=== PATIENT | male | born 1940 | race African-American/Black ===

== ENCOUNTER 2017-10-11 11:16 | Emergency (ER) | payer OTHER ==
[~2017-10-11] VITALS: Ht 180.3 cm; Wt 84.4 kg
--- NOTE | ~2017-10-11 | EKG ---
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 : 1940 Requested By: Mary Carmen Blue Order Number: [id number] MD: Larry Contreras Measurements Intervals [place] Rate: 56 P: 69 AL: 160 QRS: -53 QRSD: 172 T: -85 QT: 531 QTc: 513 Interpretive Statements Sinus rhythm Right bundle branch block Abnrm T, consider ischemia, anterolateral lds Baseline wander in lead(s) V4 Compared to ECG 05/27/2009 07:45:40 Right bundle-branch block now present Possible ischemia now present Atrial abnormality no longer present Left-axis deviation no longer present T-wave abnormality no longer present Intraventricular conduction delay no longer present Electronically Signed On 10-11-2017 15:46:54 CDT by Larry Contreras [email or web address] <ELECTRONICALLY SIGNED> By: Larry Contreras MD 10/11/17 1546 1145 1145 Larry Contreras MD /EPI
[~2017-10-11 11:16] MED LIST: BP; FUROSEMIDE 80 M80 M1 PO
[2017-10-11 11:48] LABS: ABSOLUTE NEUTROPHILS 3.5 thou/uL (1.4-8.2); BASOPHILS 0.3 % (0.0-2.0); EOSINOPHILS 1.9 % (0.0-3.0); HEMATOCRIT 40.1 % (42.0-52.0); HEMOGLOBIN 13.4 gm/dL (14.0-18.0); MCH 29.2 pg (26.0-34.0); MCHC 33.4 g/dL (28.0-37.0); MCV 87.5 fL (80.0-100.0); MONOCYTES 7.7 % (1.0-8.0); PLATELET COUNT 202 thou/uL (150-400); POLYS 77.1 % (36.0-66.0); RBC 4.59 mil/uL (4.50-6.00); RDW 14.3 % (10.5-14.5); WBC 4.6 thou/uL (4.0-11.0)
[2017-10-11 12:02] LABS: ANION GAP 6 mmol/L (7-16); BUN 14 mg/dL (7-18); CALCIUM 9.5 mg/dL (8.5-10.1); CHLORIDE 105 mmol/L (98-107); CO2 29 mmol/L (21-32); CREATININE 1.1 mg/dL (0.7-1.3); GLUCOSE 246 mg/dL (74-106); SODIUM 140 mmol/L (136-145)
[2017-10-11 12:07] LABS: TROPONIN-I < 0.04 ng/mL (<0.06)
[2017-10-11 12:59] VITALS: BP 109/62
== END 2017-10-11 13:03 | disposition home or self-care (01) ==
LOC: ER 11:16
PROVIDERS: Emergency Medicine
DX: R55 Syncope and collapse (principal); I10 Essential (primary) hypertension; E78.5 Hyperlipidemia, unspecified; E11.9 Type 2 diabetes mellitus without complications; Z85.07 Personal history of malignant neoplasm of pancreas

== ENCOUNTER 2017-11-25 11:14 | Inpatient (IN) | payer OTHER ==
[2017-11-25] VITALS (12 sets, daily range): BP systolic 134–168; BP diastolic 74–88
[~2017-11-25] VITALS: Ht 180.3 cm; Wt 77.2 kg
--- NOTE | ~2017-11-25 | H ---
[facility] [place] [address] HISTORY AND PHYSICAL Name: YOAV DE LA TORRE Room #: 360-P [facility] IN M.R.#: [id number] Admission: 11/25/17 Attend Phys: Sean Harris MD Discharge: Date of : 40 Report #: [id number] THIS REPORT FOR: //name// CC: Robert Harris DATE OF SERVICE: 11/25/2017 CHIEF COMPLAINT: Altered mental status. HISTORY OF PRESENT ILLNESS: The patient is a 77-year-old male with history of hypertension; history of DVT in the past, on Xarelto; history of PE; diabetes; and metastatic pancreatic cancer, who was brought in by EMS after being found unresponsive in his home. He normally takes insulin around 20-22 units at bedtime. He apparently took 21 units of Lantus last night. The patient has had poor p.o. intake. He says he has had poor p.o. intake since 04/2017. He has lost around 90 pounds since 2017. The patient denies any abdominal pain. He denies any nausea. No vomiting. When EMS arrived, his blood sugar was very low, less than 20. The patient was given glucose and was brought into the Emergency Room. He was also found to be bradycardic with a heart rate of 35 per minute. The patient was given a dose of atropine in the Emergency Room. His blood sugars persistently remained low and was started on a D5 drip. The patient at present is awake, alert and denies any complaint other than generalized weakness. PAST MEDICAL HISTORY: Significant for hypertension, diabetes, had a cardiac catheterization in 2009, history of metastatic pancreatic cancer, history of pulmonary embolism, dyslipidemia and diabetes. ALLERGIES: No known drug allergy. HOME MEDICATIONS: Reviewed. SOCIAL HISTORY: No smoking, alcohol abuse, or illicit drug abuse. FAMILY HISTORY: Noncontributory for this patient. REVIEW OF SYSTEMS: CONSTITUTIONAL: No fever or chills. He has lost around 90 pounds since April. EYES: No change in vision. THROAT: Denies any sore throat. CARDIOVASCULAR: No chest pain, dizziness, palpitation. RESPIRATORY: No cough or expectoration. [facility] [address] [place] [address] HISTORY AND PHYSICAL Name: YOAV DE LA TORRE Room #: 360-P [facility] IN .R.#: [id number] Admission: 11/25/17 Attend Phys: Sean Harris MD Discharge: Date of : 40 Report #: [id number] GASTROINTESTINAL: No nausea, vomiting, abdominal pain. GENITOURINARY: No dysuria, hematuria. NEUROLOGIC: No focal numbness or weakness of the extremities. PSYCHIATRIC: No anxiety or depression. The 12-point review of system is negative other than the positive and the negative dictated in the history of present illness and the review of system. PHYSICAL EXAMINATION: VITAL SIGNS: Blood pressure is 120/70, heart rate of 40 per minute, afebrile, awake and alert, not in acute respiratory distress. EYES: Pupils equal, reactive to light. THROAT: He has a dry oral mucosa. NECK: Supple, no JVD, no bruit, no lymphadenopathy. CARDIOVASCULAR SYSTEM: S1, S2; negative S3, no murmur. CHEST: Bilateral air entry present. Clear on auscultation. ABDOMEN: Soft, bowel sounds present, no mass, no organomegaly, no tenderness. EXTREMITIES: Periphery has 1-2+ pedal edema bilaterally. LABORATORY DATA: Labs reviewed. Chest x-ray showed no acute process. There is scoliosis and bilateral shoulder degenerative changes. CT of the abdomen and pelvis showed bilateral lower lobe pulmonary emboli. Pancreatic head mass, multiple liver metastatic disease, there is also cholelithiasis and a bile duct stent. There is mild circumferential mural thickening of the descending and sigmoid colon without evidence of pericolonic inflammation. There is also sclerotic bony metastatic lesion at the L5. White count is 4.3, hemoglobin is 11.3, platelet is 143. Chemistry showed potassium of 3.4. Sodium is 146, BUN and creatinine 13 and 1.0. AST and ALT are within normal limit. Alkaline phosphatase is 92. His BNP is 3158. ASSESSMENT AND PLAN: 1. Hypoglycemia, most likely secondary to his poor p.o. intake and extreme weight loss over the last several months. He might need to discontinue Levemir at home. We will continue with D5 normal saline. We will continue to monitor with Accu-Cheks closely. 2. Bradycardia. The patient will be monitored on telemetry. Could be related to hypoglycemia. We will consult Cardiology, we will also check on a TSH level. 3. Metastatic pancreatic cancer. The patient apparently has never been on any treatment modality for his pancreatic cancer. We will consult Dr. Bowie. The patient might benefit with palliative care. 4. Bilateral pulmonary emboli. The patient has developed pulmonary embolisms in spite of being on Xarelto. We will switch him to Lovenox, we will also get input from Dr. Bowie. 5. Deep venous thrombosis prophylaxis, he is on Lovenox. 6. Severe debility and protein energy malnutrition. [facility] [address] [place] [address] HISTORY AND PHYSICAL Name: YOAV DE LA TORRE Room #: 360-P ADM IN M.R.#: [id number] Admission: 11/25/17 Attend Phys: Sean Harris MD Discharge: Date of : 40 Report #: [id number] Treatment plan has been explained to the patient in detail. The patient presently wants to be a full code. His family is planning to talk to him further about the code status. <ELECTRONICALLY SIGNED> By: Sean Harris MD 11/26/17 1910 [id number] 1521 Sean Harris MD /nt
--- NOTE | ~2017-11-25 | 2DMMODE ---
[facility] [address] [place] [address] 2 D/M-MODE ECHOCARDIOGRAM Name: YOAV DE LA TORRE Room #: 245-P ADM IN M.R.#: [id number] Admission: 11/25/17 Attend Phys: Gary Enriquez Discharge: Date of : 40 Date of Service: 11/26/17 0908 Report #: [id number] THIS REPORT FOR: //name// APPROVED REPORT Study performed: 11/26/2017 08:04:57 EXAM: Comprehensive 2D, Doppler, and color-flow Echocardiogram Patient Location: ICU Room #: [facility] Status: routine BSA: 1.97 HR: 49 bpm BP: 126/72 mmHg Rhythm: NSR,PVC's,bradycardia Other Information Study Quality: Good Indications Bradycardia. Hx: Cardiomyopathy, PE, HTN, HLP, DM 2D Dimensions RVDd: 41.35 mm LVEF(%): 21.64 (>50%) IVSd: 11.41 (7-11mm) LVOT Diam: 24.01 (18-24mm) LVDd: 60.24 mm PWd: 10.07 (7-11mm) Ascending Ao: 35.31 (22-36mm) LVDs: 54.17 (25-40mm) Aortic Root: 37.31 mm Soto's LVEF: 21.64 % Volumes Left Atrial Volume (Systole) Single Plane 4CH: 54.41 mL Single Plane 2CH: 60.78 mL LA ESV Index: 33.00 mL/m2 Aortic Valve AoV Peak Rocky.: 2.24 m/s AO Peak Gr.: 20.01 mmHg LVOT Max P.10 mmHg AO Mean Gr.: 10.88 mmHg AO V2 Mean: 1.58 m/s LVOT Max V: 0.88 m/s AO V2 VTI: 49.59 cm CARL Vmax: 1.78 cm2 Mitral Valve [facility] [place] [address] 2 D/M-MODE ECHOCARDIOGRAM Name: YOAV DE LA TORRE Room #: 245-P [facility] IN M.R.#: [id number] Admission: 11/25/17 Attend Phys: Gary Enriquez Discharge: Date of : 40 Date of Service: 11/26/17 0908 Report #: [id number] E/A Ratio: 0.6 MV Decel. Time: 265.09 ms MV E Max Rocky.: 0.43 m/s MV A Rocky.: 0.72 m/s MV PHT: 76.88 ms IVRT: 179.93 ms Pulmonary Valve PV Peak Rocky.: 1.06 m/s PV Peak Gr.: 4.47 mmHg Pulmonary Vein P Vein S: 0.51 m/s P Vein D: 0.41 m/s P Vein S/D Ratio: 1.24 Tricuspid Valve TR Peak Rocky.: 2.35 m/s RAP Estimate: 5.00 mmHg TR Peak Gr.: 22.00 mmHg PA Pressure: 27.00 mmHg Left Ventricle Left ventricle is mildly dilated. There is global hypokinesis of the left ventricle. There is normal left ventricular wall thickness. Left ventricular systolic function is severely decreased. LVEF is 30-35%. Mild diastolic dysfunction is present (impaired relaxation pattern). Right Ventricle The right ventricle is normal size. The right ventricular systolic function is normal. Atria Left atrium is at the upper limits of normal. Right atrium is at the upper limits of normal. Aortic Valve Aortic valve leaflets are moderately thickened and calcified. Trace aortic regurgitation. Mild aortic stenosis. Calculated aortic valve area is 1.8 cm2 with maximum pressure gradient of 20 mmHg and mean pressure gradient of 11 mmHg. Mitral Valve The mitral valve is normal in structure. Mild mitral regurgitation. Tricuspid Valve [facility] [address] [place] [address] 2 D/M-MODE ECHOCARDIOGRAM Name: YOAV DE LA TORRE Room #: 245-P [facility] IN M.R.#: [id number] Admission: 11/25/17 Attend Phys: Gary Enriquez Discharge: Date of : 40 Date of Service: 11/26/17 0908 Report #: [id number] The tricuspid valve is normal in structure. Mild tricuspid regurgitation. Estimated PAP is 30mmHg. Pulmonic Valve The pulmonary valve is normal in structure. Trace pulmonic regurgitation. Great Vessels The aortic root is normal in size. The ascending aorta is normal in size. IVC is normal in size and collapses >50% with inspiration. Pericardium Small pericardial effusion <Conclusion> LVEF is 30-35%. Global hypokinesis of the left ventricle. Mild diastolic dysfunction is present (impaired relaxation pattern). Aortic valve leaflets are moderately thickened and calcified. Mild aortic stenosis. Calculated aortic valve area 1.8 cm2 (maximum pressure gradient of 20 mmHg, mean pressure gradient of 11 mmHg). The mitral valve is normal in structure. Mild mitral regurgitation. Mild tricuspid regurgitation. Estimated pulmonary artery pressure 30mmHg. Small pericardial effusion <ELECTRONICALLY SIGNED> By: Faizan Benz MD, FACC 11/26/17907 7 7 Faizan Benz MD, FACC /INF
--- NOTE | ~2017-11-25 | EKG ---
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1940 Requested By: Eris Lr Order Number: [id number] MD: Larry Contreras Measurements Intervals [place] Rate: 46 P: -31 ME: 170 QRS: -52 QRSD: 172 T: -54 QT: 601 QTc: 526 Interpretive Statements Sinus bradycardia RBBB and LAFB Abnormal T, consider ischemia, inferior leads Compared to ECG 10/11/2017 11:45:19 Left anterior fascicular block now present T-wave abnormality now present Sinus rhythm no longer present Possible ischemia still present Electronically Signed On 11-25-2017 13:09:22 CDT by Larry Contreras [email or web address] <ELECTRONICALLY SIGNED> By: Larry Contreras MD 11/25/17 1309 1117 1117 Larry Contreras MD /EPI
--- NOTE | ~2017-11-25 | HC ---
[facility] [place] [address] [place] [place] [address] CONSULTATION Name: YOAV DE LA TORRE Room #: 245-P [facility] IN M.R.#: [id number] Admission: 11/25/17 Attend Phys: Sean Harris MD Discharge: Date of : 40 Report #: [id number] THIS REPORT FOR: //name// CC: Faizan Benz MD [facility] Robert Araujo Primary Care Physician Sean Harris MD REASON FOR CONSULTATION: Pulmonary embolus, DVT and pancreatic cancer. HISTORY OF PRESENT ILLNESS: The patient is a 77-year-old gentleman I first met in late 2006 early 2017 with probable pancreatic cancer, though the biopsies were suspicious, but not confirmed. The patient elected not to pursue additional investigation. He also had elected to pursue nontraditional therapy, which was not unreasonable with the presumed diagnosis of pancreatic cancer, though we had wished him to have a biopsy. Note that the fine-needle aspirate was read as markedly atypical cells favoring adenocarcinoma. Note that the patient also was found to have incidental pulmonary emboli on a CAT scan in August. At that time, he was initially begun on Lovenox, but after discussion, he disliked the shots, so he was begun on Xarelto. It sounds like, in talking to the patient, has been quite noncompliant with that recently. Recently, on a trip to [place] between 1 and 2 weeks ago, he was on his pills, but since he has been back 7-10 days ago, he has maybe taken the pill half the time. He now comes in with decreased mentation, was found to have a blood sugar of around 20 and also heart rate around 35. The patient describes feeling woozy and then sort of passing out, then waking up in the ambulance. Before that, he denied any fevers or chills. No nausea or vomiting. He had noticed that perhaps his legs have been a bit more swollen, left more than right. He had not really been any more short of breath than usual. No new change in bowel habits. No blood in his urine or stool. He has had ongoing weight loss; he has total now lost maybe between 70 and 90 pounds during the last 6 or 9 months. Note that during the first several months of our followup, he had not told his about his health condition. She then became aware and has been part of the discussion in the last several months. The patient this morning is seen in the ICU. He is alert and appears to be oriented and appears to be a reliable historian. PAST MEDICAL HISTORY: Past history is notable for the development of jaundice with a CAT scan done on 05/05/2017 at [facility] that shows a pancreatic head mass measuring 4 x 3.5 cm. There is also biliary duct dilatation. He had endoscopic ultrasound at with the finding of mass near the pancreas, borders poorly defined. There was also evidence suggesting invasion into the portal vein. Fine needle aspiration had atypical cells favoring adenocarcinoma. He had an ERCP with a sphincterotomy performed. There is also, on the ERCP, changes worrisome for abnormalities in the liver. A PET scan done in 08/2017 show progression of the known pancreatic mass as well as the liver lesion and development of the second liver lesion. Tumor markers have been over 17,000. [facility] [address] [place] [address] CONSULTATION Name: YOAV DE LA TORRE Room #: 245-P ADM IN M.R.#: [id number] Admission: 11/25/17 Attend Phys: Sean Harris MD Discharge: Date of : 40 Report #: [id number] The patient also has a history of hyperlipidemia; prostate cancer in 11/2016, treated with radiation therapy. Also, type 2 diabetes mellitus, osteoarthritis, GERD and elevated bilirubin. SOCIAL HISTORY: The patient is retired. FAMILY HISTORY: No one newly diagnosed with cancer. LABORATORY DATA: Lab here at the hospital is notable for BUN 9, creatinine 0.9. AST of 26, total bilirubin 0.4, alkaline phosphatase of 92 and ALT of 14. Albumin 2.4. NT-proBNP was 3158. White count of 4.5, hemoglobin 10.6, MCV 87.6 and platelets 144,000. Differential, slight increase of neutrophils. TSH was 1.087. IMAGING: This admit includes an ultrasound of both legs showing thrombus throughout most of the left femoral vein and the popliteal vein. The left common femoral vein is patent and compressible. Left calf veins were not visualized. There is thrombus in the right distal femoral vein and the right popliteal vein. Right calf veins appear to be patent. There is also CT abdomen and pelvis, with the description compared to 05/26/2009 of acute pulmonary emboli nonocclusive, involving both lower lobes; pancreatic head mass, probably about 4 cm with marked pancreatic ductal dilatation; also multiple liver metastases, the largest measuring 4.6 x 3.5 x 5.8 cm, with additional smaller lesions; also possible suspected distal colitis with mild circumferential mural thickening and a presumed sclerotic bone met at L5 and also on the left iliac bone. Also, small umbilical hernia and bilateral indirect inguinal hernias. PHYSICAL EXAMINATION: VITAL SIGNS: The patient's height is 5 feet 11 inches, which is 180.3 cm. Weight 170.4 pounds, 77.3 kilograms. Blood pressure is 127/72, O2 sat 100 and pulse 62 at this time. Temperature is afebrile at 98.7. MOOD: The patient is alert and pleasant. NEUROLOGIC: Face is symmetrical, moving all extremities. LUNGS: Clear with good symmetric expansion. HEART: Regular rate, though slightly slow. ABDOMEN: No masses, not really tender. EXTREMITIES: Without clubbing or cyanosis. There is some trace edema, particularly in the left. ASSESSMENT AND PLAN: 1. Bilateral pulmonary emboli and bilateral deep venous thromboses, progressive, most likely has progressed on noncompliant usage of Xarelto, especially during the last 2 weeks. So, he has not really failed Xarelto; he had just failed subtherapeutic Xarelto. We will begin treatment as if he were starting fresh. The patient would prefer to go back on Xarelto on a more regular basis compared to Lovenox. We will begin the 15 b.i.d. dosing. We will [address] [address] CONSULTATION Name: YOAV DE LA TORRE Room #: 245-P [facility] IN M.R.#: [id number] Admission: 11/25/17 Attend Phys: Sean Harris MD Discharge: Date of : 40 Report #: [id number] limit activity for the next 3 days. 2. Probable pancreatic cancer with atypical cells favoring adenocarcinoma and elevated tumor marker, with progressive changes on CAT scan. The patient does not wish to take a traditional therapy. In the past, he has been taking smoothies with pomegranate and mangosteen. 3. Hypoglycemia. May be related to weight loss and need to change diabetic medications. We will defer to others. 4. Bradycardia. Cardiology has seen the patient. I think this may be related to his Coreg. We will defer to them. 5. Hyperlipidemia. Defer to others. 6. Dysphagia. The patient describes trouble swallowing for several months. Most of the time, it can be slightly intermittent and seems to be equal to liquids and solids. He describes films at [facility] recently, we will try to obtain those. May need to have speech therapy see the patient while he is here. By: [id number] Fredy Bowie MD /nt
[2017-11-25 11:38] LABS: ABSOLUTE NEUTROPHILS 3.5 thou/uL (1.4-8.2); BASOPHILS 0.3 % (0.0-2.0); EOSINOPHILS 1.7 % (0.0-3.0); HEMATOCRIT 33.3 % (42.0-52.0); HEMOGLOBIN 11.3 gm/dL (14.0-18.0); LYMPHOCYTES 14.1 % (24.0-44.0); MCH 29.5 pg (26.0-34.0); MCHC 33.9 g/dL (28.0-37.0); MCV 87.2 fL (80.0-100.0); MONOCYTES 7.6 % (1.0-8.0); PLATELET COUNT 143 thou/uL (150-400); POLYS 76.3 % (36.0-66.0); RBC 3.82 mil/uL (4.50-6.00); RDW 14.4 % (10.5-14.5); WBC 4.5 thou/uL (4.0-11.0)
[2017-11-25 11:48] LABS: ANION GAP 5 mmol/L (7-16); BUN 13 mg/dL (7-18); CALCIUM 8.6 mg/dL (8.5-10.1); CHLORIDE 108 mmol/L (98-107); CO2 33 mmol/L (21-32); GLUCOSE 56 mg/dL (74-106); POTASSIUM 3.4 mmol/L (3.5-5.1); SODIUM 146 mmol/L (136-145)
[2017-11-25 11:56] LABS: ALBUMIN 2.4 g/dL (3.4-5.0); MAGNESIUM 2.3 mg/dL (1.8-2.4); SGOT 26 U/L (15-37); SGPT 14 U/L (30-65); TOTAL BILIRUBIN 0.4 mg/dL (<0.1-1.0); TROPONIN-I <0.06 ng/mL (<0.06)
[2017-11-25] MEDS ORDERED: PRINIVIL20 MG PO (12:07)
[2017-11-25] MEDS ORDERED: LEVEMIR FL100 UNIT/2 SUBQ (12:07)
[2017-11-25] MEDS ORDERED: XARELTO20 MG PO (12:07)
[2017-11-25] MEDS ORDERED: COREG25 MG PO (12:08)
[2017-11-25] MEDS ORDERED: ZOCOR40 MG PO (12:08)
[2017-11-26] VITALS (18 sets, daily range): BP systolic 116–156; BP diastolic 69–91
[2017-11-26 05:04] LABS: ABSOLUTE NEUTROPHILS 3.2 thou/uL (1.4-8.2); BASOPHILS 0.4 % (0.0-2.0); EOSINOPHILS 2.1 % (0.0-3.0); HEMATOCRIT 31.7 % (42.0-52.0); HEMOGLOBIN 10.6 gm/dL (14.0-18.0); LYMPHOCYTES 16.4 % (24.0-44.0); MCH 29.2 pg (26.0-34.0); MCHC 33.4 g/dL (28.0-37.0); MCV 87.6 fL (80.0-100.0); MONOCYTES 10.2 % (1.0-8.0); PLATELET COUNT 144 thou/uL (150-400); POLYS 70.9 % (36.0-66.0); RBC 3.62 mil/uL (4.50-6.00); RDW 13.9 % (10.5-14.5); WBC 4.5 thou/uL (4.0-11.0)
[2017-11-26 05:05] LABS: CALCIUM 8.1 mg/dL (8.5-10.1); CREATININE 0.9 mg/dL (0.7-1.3); MAGNESIUM 1.8 mg/dL (1.8-2.4); POTASSIUM 3.5 mmol/L (3.5-5.1)
[2017-11-27 04:49] LABS: ABSOLUTE NEUTROPHILS 2.9 thou/uL (1.4-8.2); BASOPHILS 0.7 % (0.0-2.0); EOSINOPHILS 2.9 % (0.0-3.0); HEMATOCRIT 35.6 % (42.0-52.0); HEMOGLOBIN 11.9 gm/dL (14.0-18.0); LYMPHOCYTES 19.7 % (24.0-44.0); MCH 29.2 pg (26.0-34.0); MCHC 33.4 g/dL (28.0-37.0); MCV 87.3 fL (80.0-100.0); MONOCYTES 8.8 % (1.0-8.0); PLATELET COUNT 173 thou/uL (150-400); POLYS 67.9 % (36.0-66.0); RBC 4.08 mil/uL (4.50-6.00); RDW 14.1 % (10.5-14.5); WBC 4.3 thou/uL (4.0-11.0)
[2017-11-27 04:55] VITALS: BP 136/96
[2017-11-27 05:04] LABS: ALBUMIN 2.5 g/dL (3.4-5.0); CALCIUM 8.6 mg/dL (8.5-10.1); CREATININE 0.8 mg/dL (0.7-1.3); POTASSIUM 3.3 mmol/L (3.5-5.1); TOTAL BILIRUBIN 0.5 mg/dL (<0.1-1.0); TOTAL PROTEIN 7.1 g/dL (6.4-8.2)
[2017-11-27 07:35] VITALS: BP 119/81
[2017-11-27 11:23] VITALS: BP 150/98
[2017-11-27 16:13] VITALS: BP 128/97
[2017-11-27 19:53] VITALS: BP 137/81
[2017-11-28 03:59] VITALS: BP 135/92
[2017-11-28 05:13] LABS: ABSOLUTE NEUTROPHILS 2.6 thou/uL (1.4-8.2); BASOPHILS 0.5 % (0.0-2.0); EOSINOPHILS 3.4 % (0.0-3.0); HEMOGLOBIN 11.8 gm/dL (14.0-18.0); LYMPHOCYTES 22.5 % (24.0-44.0); MCH 29.3 pg (26.0-34.0); MCHC 33.7 g/dL (28.0-37.0); MCV 87.1 fL (80.0-100.0); MONOCYTES 10.3 % (1.0-8.0); PLATELET COUNT 203 thou/uL (150-400); POLYS 63.3 % (36.0-66.0); RBC 4.02 mil/uL (4.50-6.00); RDW 14.2 % (10.5-14.5); WBC 4.2 thou/uL (4.0-11.0)
[2017-11-28 05:27] LABS: CALCIUM 8.8 mg/dL (8.5-10.1); CREATININE 0.9 mg/dL (0.7-1.3); POTASSIUM 4.1 mmol/L (3.5-5.1)
[2017-11-28 08:21] VITALS: BP 135/86
[2017-11-28 13:16] VITALS: BP 135/86
[2017-11-28] MEDS ORDERED: COREG6.25 MG PO (13:43)
[2017-11-28] MEDS ORDERED: XARELTO15 MG PO (13:43)
== END 2017-11-28 14:36 | disposition home or self-care (01) | DRG 175 ==
LOC: ER 11:14 → EROBS 12:32 → ICU 12:32 → 3W 11-26 19:04
PROVIDERS: Emergency Medicine; Hospitalist; Internal Medicine
DX: I26.99 Other pulmonary embolism without acute cor pulmonale (principal); E43 Unspecified severe protein-calorie malnutrition; C25.9 Malignant neoplasm of pancreas, unspecified; I42.9 Cardiomyopathy, unspecified; I82.413 Acute embolism and thrombosis of femoral vein, bilateral; I82.433 Acute embolism and thrombosis of popliteal vein, bilateral; I10 Essential (primary) hypertension; E78.5 Hyperlipidemia, unspecified; E11.649 Type 2 diabetes mellitus with hypoglycemia without coma; R16.0 Hepatomegaly, not elsewhere classified; M19.90 Unspecified osteoarthritis, unspecified site; K21.9 Gastro-esophageal reflux disease without esophagitis; R13.10 Dysphagia, unspecified; R00.1 Bradycardia, unspecified; Z68.23 Body mass index [BMI] 23.0-23.9, adult; Z79.899 Other long term (current) drug therapy
CPT/HCPCS: 10078; 10779

== ENCOUNTER 2018-02-09 15:05 | Emergency (ER) | payer OTHER ==
[~2018-02-09] VITALS: Ht 180.3 cm; Wt 76.7 kg
--- NOTE | ~2018-02-09 | EKG ---
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 : 1940 Requested By: Gege Franco Order Number: [id number] MD: Larry Contreras Measurements Intervals [place] Rate: 52 P: 81 [place]: 166 QRS: -49 QRSD: 184 T: -70 QT: 564 QTc: 525 Interpretive Statements Sinus rhythm RBBB and LAFB Compared to ECG 11/25/2017 11:17:43 Ventricular premature complex(es) now present Sinus bradycardia no longer present T-wave abnormality no longer present Possible ischemia no longer present Electronically Signed On 02-14-2018 16:55:08 CDT by Larry Contreras [email or web address] <ELECTRONICALLY SIGNED> By: Larry Contreras MD 02/14/18 1655 1542 1542 Larry Contreras MD /EPI
[~2018-02-09 15:05] MED LIST changes: +COREG25 MG PO; +COREG6.25 MG PO; +LEVEMIR FL100 UNIT/2 SUBQ; +PRINIVIL20 MG PO; +XARELTO15 MG PO; +XARELTO20 MG PO; +ZOCOR40 MG PO
[2018-02-09] MEDS ORDERED: SIMVASTATIN40 MG PO (15:54)
[2018-02-09] MEDS ORDERED: LISINOPRIL30 MG PO (15:55)
[2018-02-09 16:10] LABS: ABSOLUTE NEUTROPHILS 3.2 thou/uL (1.4-8.2); BASOPHILS 0.5 % (0.0-2.0); EOSINOPHILS 0.5 % (0.0-3.0); HEMOGLOBIN 9.9 gm/dL (14.0-18.0); LYMPHOCYTES 13.6 % (24.0-44.0); MCH 30.1 pg (26.0-34.0); MCV 88.5 fL (80.0-100.0); MONOCYTES 8.7 % (1.0-8.0); POLYS 76.7 % (36.0-66.0); RBC 3.28 mil/uL (4.50-6.00); RDW 14.3 % (10.5-14.5); WBC 4.1 thou/uL (4.0-11.0)
[2018-02-09 16:18] LABS: ANION GAP 10 mmol/L (7-16); BUN 12 mg/dL (7-18); CHLORIDE 104 mmol/L (98-107); CO2 24 mmol/L (21-32); CREATININE 0.9 mg/dL (0.7-1.3); GLUCOSE 169 mg/dL (74-106); POTASSIUM 3.7 mmol/L (3.5-5.1); SODIUM 138 mmol/L (136-145)
[2018-02-09 16:22] LABS: ALBUMIN 2.6 g/dL (3.4-5.0); DIRECT BILIRUBIN < 0.1 mg/dL (<0.1-0.3); SGOT 30 U/L (15-37); SGPT 15 U/L (30-65); TOTAL BILIRUBIN 0.3 mg/dL (<0.1-1.0)
[2018-02-09 16:27] LABS: TROPONIN-I <0.06 ng/mL (<0.06)
[2018-02-09 16:33] LABS: PLATELET COUNT 99 thou/uL (150-400)
[2018-02-09 18:28] LABS: URINE BILIRUBIN NEGATIVE (Negative); URINE BLOOD NEGATIVE (Negative); URINE CLARITY CLEAR; URINE COLOR YELLOW; URINE GLUCOSE-RANDOM* NEGATIVE (Negative); URINE KETONES NEGATIVE (Negative); URINE LEUKOCYTES-REFLEX NEGATIVE (Negative); URINE NITRITE-REFLEX NEGATIVE (Negative); URINE PROTEIN (DIPSTICK) NEGATIVE (Negative); URINE SPECIFIC GRAVITY 1.015 (1.005-1.035); URINE UROBILINOGEN 0.2 E.U./dl (0.2-1.0)
== END 2018-02-09 19:11 | disposition home or self-care (01) ==
LOC: ER 15:05
PROVIDERS: Student in an Organized Health Care Education/Training Program
DX: M79.89 Other specified soft tissue disorders (principal); I10 Essential (primary) hypertension; E11.9 Type 2 diabetes mellitus without complications; E78.5 Hyperlipidemia, unspecified; Z95.5 Presence of coronary angioplasty implant and graft; Z85.07 Personal history of malignant neoplasm of pancreas

== ENCOUNTER 2018-02-26 16:44 | Inpatient (IN) | payer OTHER ==
[~2018-02-26] VITALS: Ht 180.3 cm; Wt 78.5 kg
[~2018-02-26 16:44] MED LIST changes: +LISINOPRIL30 MG PO; +SIMVASTATIN40 MG PO
[2018-02-26 16:47] VITALS: BP 137/70
[2018-02-26 17:48] LABS: ABSOLUTE NEUTROPHILS 8.2 thou/uL (1.4-8.2); BASOPHILS 0.1 % (0.0-2.0); HEMATOCRIT 26.5 % (42.0-52.0); LYMPHOCYTES 4.5 % (24.0-44.0); MCH 29.9 pg (26.0-34.0); MCHC 33.9 g/dL (28.0-37.0); MCV 88.2 fL (80.0-100.0); MONOCYTES 7.5 % (1.0-8.0); PLATELET COUNT 127 thou/uL (150-400); POLYS 87.9 % (36.0-66.0); RDW 15.1 % (10.5-14.5); WBC 9.3 thou/uL (4.0-11.0)
[2018-02-26 17:54] LABS: CALCIUM 8.8 mg/dL (8.5-10.1); CREATININE 1.2 mg/dL (0.7-1.3); POTASSIUM 3.4 mmol/L (3.5-5.1)
[2018-02-26 19:31] VITALS: BP 122/68
[2018-02-26 20:40] VITALS: BP 135/71
[2018-02-27] VITALS (21 sets, daily range): BP systolic 110–177; BP diastolic 54–85
[2018-02-27 06:37] LABS: CALCIUM 8.4 mg/dL (8.5-10.1); CREATININE 0.9 mg/dL (0.7-1.3)
[2018-02-27 06:38] LABS: POTASSIUM 2.8 mmol/L (3.5-5.1)
[2018-02-27 06:41] LABS: ALBUMIN 1.9 g/dL (3.4-5.0); PHOSPHORUS 2.9 mg/dL (2.5-4.9)
[2018-02-27] MEDS ORDERED: DIFLUCAN100 MG PO (20:39)
[2018-02-27] MEDS ORDERED: LOPERAMIDE 2 MG2 M1 PO (20:45)
[2018-02-27] MEDS ORDERED: VITAMIN D250000 UNIT PO (20:49)
[2018-02-27] MEDS ORDERED: VITAMIN B COMP1 EACH (20:51)
[2018-02-27] MEDS ORDERED: BEE POLLEN550 MG (20:53)
[2018-02-27] MEDS ORDERED: FISH OIL 1,001000 M2 PO (20:55)
[2018-02-27] MEDS ORDERED: MULTIVITAMINS1 EAC7 (20:59)
[2018-02-28] VITALS (7 sets, daily range): BP systolic 107–150; BP diastolic 63–75
[2018-02-28 05:05] LABS: HEMATOCRIT 24.1 % (42.0-52.0); MCHC 33.2 g/dL (28.0-37.0); MCV 87.2 fL (80.0-100.0); RBC 2.76 mil/uL (4.50-6.00); RDW 14.9 % (10.5-14.5); WBC 5.9 thou/uL (4.0-11.0)
[2018-02-28 05:12] LABS: CALCIUM 8.5 mg/dL (8.5-10.1); POTASSIUM 3.9 mmol/L (3.5-5.1)
[2018-02-28] MEDS ORDERED: LOPERAMIDE 2 MG2 M1 PO (05:28)
[2018-02-28 09:29] LABS: INR 1.6; PROTIME 15.9 Seconds (9.3-11.4)
[2018-03-01 08:26] LABS: HEMATOCRIT 25.8 % (42.0-52.0); HEMOGLOBIN 8.4 gm/dL (14.0-18.0); MCH 28.7 pg (26.0-34.0); MCHC 32.6 g/dL (28.0-37.0); MCV 87.9 fL (80.0-100.0); RBC 2.93 mil/uL (4.50-6.00); RDW 14.9 % (10.5-14.5); WBC 6.8 thou/uL (4.0-11.0)
[2018-03-01 11:33] VITALS: BP 150/74
== END 2018-03-01 15:50 | disposition home health service (06) | DRG 907 ==
LOC: ER 16:44 → EROBS 18:34 → ICU 18:34 → EROBS 19:16 → 4E 19:53 → ICU 02-27 07:10 → SICU 02-28 20:01 → ENTRNSPT 03-01 15:28 → EDTRNSPTSTS 03-01 15:39 → SICU 03-01 15:50
PROVIDERS: Emergency Medicine; Hospitalist; Nurse Practitioner Acute Care; Radiology Vascular & Interventional Radiology
PROC: 06H03DZ Insertion of Intraluminal Device into Inferior Vena Cava, Percutaneous Approach (ICD-10-PCS; principal; 2018-02-28)
DX: T38.3X1A Poisoning by insulin and oral hypoglycemic [antidiabetic] drugs, accidental (unintentional), initial encounter (principal); E43 Unspecified severe protein-calorie malnutrition; N17.9 Acute kidney failure, unspecified; C25.9 Malignant neoplasm of pancreas, unspecified; I82.402 Acute embolism and thrombosis of unspecified deep veins of left lower extremity; I10 Essential (primary) hypertension; E78.5 Hyperlipidemia, unspecified; E11.649 Type 2 diabetes mellitus with hypoglycemia without coma; M62.84 Sarcopenia; E83.42 Hypomagnesemia; E87.6 Hypokalemia; E11.65 Type 2 diabetes mellitus with hyperglycemia; Z85.07 Personal history of malignant neoplasm of pancreas; Z86.711 Personal history of pulmonary embolism; Z79.899 Other long term (current) drug therapy; Z79.4 Long term (current) use of insulin; Y92.89 Other specified places as the place of occurrence of the external cause; Z68.24 Body mass index [BMI] 24.0-24.9, adult
CPT/HCPCS: 10204; 10783; 15002